=== PATIENT | male | born 1935 | race Caucasian/White ===

== ENCOUNTER 2022-08-04 18:36 | Emergency (ER) | payer MEDICARE, SELFPAY ==
[2022-08-04 18:44] VITALS: BP 136/79; PULSE 76; RESP 18; TEMP 36.1; O2SAT 97; BMI 25.8
--- NOTE | 2022-08-04 19:51 | ED.UPPEXIN ---
HPI - Extremity Injury (Upper) General Chief Complaint: Extremity Pain/Injury, Upper Stated Complaint: Left Hand slammed in door Time Seen by Provider: 08/04/22 19:39 History of Present Illness HPI narrative: This 86-year-old male comes in with an injury to his left hand that occurred a couple days ago. He states that he bumped it on a door as it was closing. He did not have much pain but has noticed swelling over the dorsal aspect of his 2nd and 3rd MP joints of the left hand. He does have normal range of motion. He is taking Coumadin for atrial fibrillation. Related Data Home Medications Medication Instructions Recorded Confirmed atenolol 50 mg tablet 50 mg PO DAILY 08/04/22 08/04/22 digoxin 125 mcg (0.125 mg) tablet 125 mcg PO DAILY 08/04/22 08/04/22 hydrochlorothiazide 25 mg tablet 25 mg PO DAILY 08/04/22 08/04/22 insulin glargine 100 unit/mL (3 25 unit subcut DAILY 08/04/22 08/04/22 mL) subcutaneous pen (Lantus Solostar U-100 Insulin) levothyroxine 75 mcg tablet 75 mcg PO DAILY 08/04/22 08/04/22 metformin 500 mg tablet 500 mg PO BID 08/04/22 08/04/22 tamsulosin 0.4 mg capsule 0.4 mg PO DAILY 08/04/22 08/04/22 warfarin 5 mg tablet mg PO 08/04/22 Allergies Allergy/AdvReac Type Severity Reaction Status Date / Time amoxicillin Allergy Verified 08/04/22 18:48 erythromycin base Allergy Verified 08/04/22 18:48 Review of Systems Status of ROS: Reports: 10 or more systems reviewed and unremarkable except as noted in History and below Narrative: Constitutional: No fevers, no weight gain or loss. Eyes: No discharge. No vision changes. HENT: No congestion, no sore throat, no ear pain. Cardiovascular: No chest pain, no palpitations. Respiratory: No shortness of breath, no wheezes, no cough. Gastrointestinal: No abdominal pain, no vomiting, no diarrhea. Genitourinary: No dysuria, no hematuria. Musculoskeletal: Normal range of motion. Skin: No rashes, no pruritis. Neurological: No dizziness, weakness, sensory change, speech change. Endo/Heme/Allergies: No bruising or bleeding. No polydipsia. Pysch: no suicidality, no anxiety, no insomnia. All other systems reviewed and are negative. Exam Narrative: Exam Narrative: Constitutional: Well-developed, well-nourished, no acute distress. HEENT: Normocephalic, atraumatic. Neck: Normal range of motion. Nontender. Supple. Heart: Intact distal pulses. Irregular rhythm. Lungs: No chest discomfort. No wheezes, rhonchi, or rales. Abdomen: Nontender. Back: Normal range of motion. Extremities: Normal range of motion. Hematoma over the dorsal aspect of the left hand. Range of motion is intact. Skin: Intact. No rash. Warm. No erythema or pallor. Neurologic: No altered sensation. No weakness. Alert and oriented. Psychiatric: No suicidality. No anxiety or depression. No insomnia. Nursing notes and vitals signs are reviewed. Const: Vital Signs, click to edit/add: Vital Signs - 24 hr 08/04/22 18:44 Temperature 97.0 F L Pulse Rate [Right Pulse Oximeter] 76 Respiratory Rate 18 Blood Pressure [Le ft Upper Arm] 136/79 Pulse Oximetry 97 Oxygen Delivery Me thod Room Air Course Vital Signs Vital signs: Initial Vital Signs Temperature 97.0 F L 08/04/22 18:44 Temperature Source Temporal Artery Scan 08/04/22 18:44 Pulse Rate 76 08/04/22 18:44 Respiratory Rate 18 08/04/22 18:44 Blood Pressure 136/79 08/04/22 18:44 Blood Pressure Mean 98 08/04/22 18:44 Blood Pressure Position Sitting 08/04/22 18:44 Pulse Oximetry 97 08/04/22 18:44 Oxygen Delivery Method Room Air 08/04/22 18:44 Vital Signs Temperature 97.0 F L 08/04/22 18:44 Pulse Rate 76 08/04/22 18:44 Respiratory Rate 18 08/04/22 18:44 Blood Pressure 136/79 08/04/22 18:44 Pulse Oximetry 97 08/04/22 18:44 Oxygen Delivery Method Room Air 08/04/22 18:44 Temperature 97.0 F L 08/04/22 18:44 Pulse Rate 76 08/04/22 18:44 Respiratory Rate 18 08/04/22 18:44 Blood Pressure 136/79 08/04/22 18:44 Pulse Oximetry 97 08/04/22 18:44 Oxygen Delivery Method Room Air 08/04/22 18:44 MDM - Extremity Injury (Upper) MDM Narrative Medical decision making narrative: This patient has a hematoma on the dorsal aspect of his left hand from an injury that occurred a couple days ago. He has continued to be very active and states that he was cleaning the garage and noticed that there was more swelling afterwards. He has normal range of motion of his hand and does not describe any particular pain. I did describe x-ray imaging but this was declined in a process of shared decision making. I explained the risks of taking Coumadin that can prolonged bleeding yet the benefits outweigh these risks in prevention of blood clots in more serious places. Discharge Plan Discharge Clinical Impression: Contusion of hand, left Patient Disposition: Home, Self-Care Condition: Stable Additional Instructions: Continue current plans. Wear Smith wrap for compression. Increase activity as tolerated. Prescriptions: No Action metformin 500 mg tablet 500 mg PO BID levothyroxine 75 mcg tablet 75 mcg PO DAILY tamsulosin 0.4 mg capsule 0.4 mg PO DAILY warfarin 5 mg tablet PO hydrochlorothiazide 25 mg tablet 25 mg PO DAILY digoxin 125 mcg (0.125 mg) tablet 125 mcg PO DAILY atenolol 50 mg tablet 50 mg PO DAILY insulin glargine [Lantus Solostar U-100 Insulin] 100 unit/mL (3 mL) insulin pen 25 unit subcut DAILY Follow Up/Referrals: Provider,Not a Local [Primary Care Provider] - Stand Alone Forms: [employer] Info Instructions
[2022-08-04 20:18] VITALS: BP 136/79; PULSE 76; RESP 18; TEMP 36.6; O2SAT 97
[2022-08-04 20:20] VITALS: BP 136/79; PULSE 76; RESP 18; TEMP 36.6
== END 2022-08-04 20:20 | disposition home or self-care (01) ==
PROVIDERS: Emergency Provider Emergency Medicine Emergency Medical Services
DX: S60.222A Contusion of left hand, initial encounter (principal); W22.8XXA Striking against or struck by other objects, initial encounter
CPT/HCPCS: 99282; 99284